=== PATIENT | male | born 1975 | race Two or more races ===

== ENCOUNTER 2017-10-21 09:03 | Emergency (ER) | payer SELFPAY ==
[~2017-10-21] VITALS: Ht 182.9 cm; Wt 95.3 kg
[2017-10-21 09:03] VITALS: BP_SYST 150
--- NOTE | 2017-10-21 09:03 | NUR ---
BROUGHT IMMEDIATELY BACK TO BED #6 AND TRIAGED. REPORT GIVEN TO KRISTOFER
--- NOTE | 2017-10-21 09:10 | NUR ---
Pt presents to ER c/o non-radiating center chest pain 10/10 on pain scale, denies N/V/D/SOB. pt in no acute respiratory distress, speaking full sentences, AOX4, ambulatory.
[2017-10-21] MEDS ORDERED: MORPHINE 4 MG/ML INJ. SYRINGE IVP ONE (09:15)
[2017-10-21] MEDS ORDERED: ONDANSETRON HCL 4 MG/2 ML VIAL IVP ONE (09:15)
--- NOTE | 2017-10-21 09:20 | NUR ---
ER at bedside examining patient.
--- NOTE | 2017-10-21 09:30 | NUR ---
# 20 gauge angiocath placed to LAC. Use of asceptic technique. Opsite placed over site. Blood return noted. Flushed with 10 cc of normal saline. No evidence of infiltration noted. Patient tolerated well.
[2017-10-21 09:33] LABS: BASOPHILS % (AUTO) 0.4 % (0.0-2.0); EOSINOPHILS # (AUTO) 0.1 K/uL (0.0-0.4); EOSINOPHILS % (AUTO) 2.3 % (0.0-4.0); HEMATOCRIT 41.5 % (36-54); HEMOGLOBIN 14.2 g/dL (14.0-18.0); LYMPHOCYTES # (AUTO) 1.5 K/uL (1.0-5.5); LYMPHOCYTES % (AUTO) 31.1 % (20.5-51.5); MEAN CORPUSCULAR HEMOGLOBIN 28 pg (27-31); MEAN CORPUSCULAR HGB CONC 34 % (32-36); MEAN CORPUSCULAR VOLUME 82 fL (79.0-98.0); MONOCYTES # (AUTO) 0.4 K/uL (0.0-1.0); MONOCYTES % (AUTO) 7.5 % (1.7-9.3); NEUTROPHILS # (AUTO) 2.9 K/uL (1.8-7.7); NEUTROPHILS % (AUTO) 58.7 % (40.0-70.0); PLATELET COUNT (AUTO) 191 K/uL (130-430); RED BLOOD CELL COUNT(AUTO) 5.07 MIL/uL (4.2-6.2); WHITE BLOOD COUNT (AUTO) 4.9 K/uL (4.8-10.8)
[2017-10-21 09:43] LABS: CALCIUM 8.9 mg/dL (8.4-11.0); CREATININE 1.05 mg/dL (0.55-1.30)
--- NOTE | 2017-10-21 09:44 | NUR ---
Pt medicated as ordered by Dr. Chatman, pt tolerated well, will continue to monitor.
[2017-10-21 09:49] LABS: INR 0.9 (0.80-1.20); PROTHROMBIN TIME 9.3 SECS (9.5-12.5)
[2017-10-21 09:52] LABS: ALBUMIN 3.9 g/dL (3.4-4.8); TOTAL BILIRUBIN 0.3 mg/dL (0.0-1.0)
--- NOTE | 2017-10-21 10:30 | NUR ---
Pt resting on gurney, no signs of distress, no complaints of pain at the moment, will continue to monitor.
[2017-10-21 11:55] VITALS: BP_SYST 146
--- NOTE | 2017-10-21 11:55 | NUR ---
Patient given written and verbal discharge instructions and verbalizes understanding. ER MD discussed with patient the results and treatment provided. Patient in stable condition. ID arm band removed. IV catheter removed intact and dressing applied, no active bleeding. Rx of Tramadol, Zofran, and Protonix given. Patient educated on pain management and to follow up with PMD within 3-5days. Pain Scale 5/10; tolerable and requires no further intervention at this time; pt and MD agreeable to dc home. Opportunity for questions provided and answered. Medication side effect fact sheet provided.
== END 2017-10-21 11:55 | disposition home or self-care (01) ==
LOC: SED 09:03
DX: K85.90 Acute pancreatitis without necrosis or infection, unspecified (principal); K75.9 Inflammatory liver disease, unspecified; Z88.8 Allergy status to other drugs, medicaments and biological substances
CPT/HCPCS: 36415; 71045; 74176; 76700; 80053; 83690; 84484; 85025; 85610; 85730; 93005; 96374; 96375; 99285; J2270; J2405